=== PATIENT | female | born 1995 | race Caucasian/White ===

== ENCOUNTER 2021-10-03 21:16 | Emergency (ER) | payer OTHER, MEDICAID, SELFPAY ==
[2021-10-03 21:23] VITALS: BP 137/84; PULSE 98; RESP 18; TEMP 36.6; O2SAT 95; BMI 31.1
[2021-10-03 22:20] LABS: Basophils % 0.1 %; Eosinophils % 0.1 %; Hematocrit 45.3 % (37.0-47.0); Hemoglobin 14.8 g/dL (11.5-15.3); Lymphocytes # 1.5 10^3/uL (0.8-4.8); Lymphocytes % 9.9 %; Mean Corpuscular HGB Conc 32.7 g/dL (30.0-36.0); Mean Corpuscular Hemoglobin 28.4 pg (28.0-34.0); Mean Corpuscular Volume 86.8 fl (81-99); Mean Platelet Volume 10.7 fL (7.4-10.4); Monocytes % 7.1 %; Neutrophils # 12.05 10^3/uL (1.8-7.7); Neutrophils % 82.7 %; Nucleated Red Blood Cells % 0 %; Platelet Count 358 10^3/cmm (130-400); Red Blood Count 5.22 10^6/uL (4.1-5.3); Red Cell Distribution Width 12.9 % (12.1-15.1); White Blood Count 14.6 10^3/uL (4.0-10.0)
[2021-10-03 22:36] LABS: Alanine Aminotransferase 14 U/L (0-33); Albumin Level 4.4 g/dL (3.5-5.2); Alkaline Phosphatase 72 IU/L (35-105); Anion Gap 14.7 (5-19); Aspartate Amino Transferase 16 U/L (0-32); Blood Urea Nitrogen 13 mg/dL (6-20); Calcium 9.4 mg/dL (8.5-10.5); Carbon Dioxide 22 mmol/L (22-29); Chloride 100 mmol/L (98-107); Globulin 4.3 g/dL (1.3-4.6); Glomerular Filtration Rate 123.9 mL/min (90-130); Glucose 97 mg/dL (65-115); Osmolality Calculated 276 mOsm/kg (285-295); Potassium 3.7 mmol/L (3.5-5.1); Sodium 133 mmol/L (136-145); Total Bilirubin 0.4 mg/dL (0.15-1.2); Total Protein 8.7 g/dL (6.6-8.7)
[2021-10-03 22:42] LABS: HCG, Serum Qual Negative (Negative)
--- NOTE | 2021-10-03 22:49 | W.ED.GENADLT ---
Documented by User: DOTTIE Brock 10/03/21 23:43 HPI - General Adult General: Chief complaint: General Medical Stated complaint: HERRERA/Body aches/N/V/D Time Seen by Provider: 10/03/21 22:49 History of Present Illness: 25-year-old female comes in today with complaints of headache and nausea. Patient recently been put on some prednisone for her swelling around her thyroid in order for them to do a ultrasound of the neck. Patient reports that she had taken 2 tablets of prednisone this morning as prescribed. Since then she has had nausea and headache. Patient does report that the swelling around her thyroid has resolved after taking the medication though. Patient appears nontoxic. Patient appears moderate pain. Associated symptoms: Reports headache(s), malaise, nausea and vomiting; Deny chest pain, dyspnea or rash Review of Systems General: Reports: 10 or more systems reviewed and unremarkable except in HPI and below Const: Reports: malaise ENMT: Denies: throat pain Card: Denies: chest pain Resp: Denies: dyspnea GI: Reports: nausea and vomiting : Denies: flank pain Musc: Reports: extremity pain Skin/Breast: Denies: rash Neuro: Reports: headache(s) Physical Exam Const: COMMON NORMALS: alert HENMT: COMMON NORMALS: normocephalic HEAD & SCALP: normocephalic MOUTH: Normal oral and palatal mucosa present THROAT: posterior oropharynx normal Neck/C-Spine: COMMON NORMALS: full ROM Lymph: LYMPHATIC: no lymphadenopathy noted Resp: COMMON NORMALS: normal respiratory effort and clear to auscultation bilaterally AUSCULTATION: clear to auscultation bilaterally Cardio: COMMON NORMALS: regular rate and regular rhythm RATE: regular rate RHYTHM: regular rhythm GI: COMMON NORMALS: Soft to palpation PALPATION: Yes Soft to palpation Extremity: COMMON NORMALS: full ROM Neuro: SENSORIUM/ORIENTATION: Yes alert Psych: COMMON NORMALS: cooperative Skin: COMMON NORMALS: no rashes or lesions noted GENERAL SKIN EXAM: no rashes or lesions noted Course Vital Signs: Vital signs: Vital Signs Temperature 98 F 10/03/21 22:53 Pulse Rate 96 10/03/21 23:48 Respiratory Rate 14 10/03/21 23:48 Blood Pressure 122/68 10/03/21 23:48 Pulse Oximetry 99 10/03/21 23:48 [facility] - General Adult Medical Decision Making Patient comes in today with complaints of malaise, headache, and nausea. Patient recently was started on some prednisone 40 mg with her first dose today. Patient reports after taking medication she became ill to her stomach and then started getting a headache and basic body aches. On exam no focal neural deficits were noted. Patient moves all extremities well. Abdomen soft nontender. Skin is warm and dry. Vital signs are normal. Differential diagnosis includes but not limited to adverse drug effect, viral syndrome, migraine headache. CBC noted some elevation in white blood cell count which is probably secondary to steroid use. CMP was unremarkable except for some mild hyponatremia which may also be due to steroid use. Urinalysis was unremarkable. Patient was treated for her headache with Reglan and Toradol and diphenhydramine and 500 mL of fluid. Patient was instructed to hold the prednisone and discuss further with her primary care provider due to this being probably the culprit of her symptoms. Patient stated understanding and agreed to plan. Lab Data : 10/03/21 22:14 10/03/21 22:14 Laboratory Results WBC 14.6 10^3/uL (4.0-10.0) H 10/03/21 22:14 RBC 5.22 10^6/uL (4.1-5.3) 10/03/21 22:14 Hgb 14.8 g/dL (11.5-15.3) 10/03/21 22:14 Hct 45.3 % (37.0-47.0) 10/03/21 22:14 MCV 86.8 fl (81-99) 10/03/21 22:14 MCH 28.4 pg (28.0-34.0) 10/03/21 22:14 MCHC 32.7 g/dL (30.0-36.0) 10/03/21 22:14 RDW 12.9 % (12.1-15.1) 10/03/21 22:14 Plt Count 358 10^3/cmm (130-400) 10/03/21 22:14 MPV 10.7 fL (7.4-10.4) H 10/03/21 22:14 Neut % (Auto) 82.7 % 10/03/21 22:14 Lymph % (Auto) 9.9 % 10/03/21 22:14 [place] % (Auto) 7.1 % 10/03/21 22:14 Eos % (Auto) 0.1 % 10/03/21 22:14 Baso % (Auto) 0.1 % 10/03/21 22:14 Neut # (Auto) 12.05 10^3/uL (1.8-7.7) H 10/03/21 22:14 Lymph # (Auto) 1.5 10^3/uL (0.8-4.8) 10/03/21 22:14 [place] # (Auto) 1.0 10^3/uL (0.2-0.9) H 10/03/21 22:14 Eos # (Auto) 0.0 10^3/uL (0.0-0.8) 10/03/21 22:14 Baso # (Auto) 0.0 10^3/uL (0.0-0.1) 10/03/21 22:14 Nucleated RBC % (auto) 0 % 10/03/21 22:14 Nucleated RBCs # 0.0 /100WBC 10/03/21 22:14 Sodium 133 mmol/L (136-145) L 10/03/21 22:14 Potassium 3.7 mmol/L (3.5-5.1) 10/03/21 22:14 Chloride 100 mmol/L (98-107) 10/03/21 22:14 Carbon Dioxide 22 mmol/L (22-29) 10/03/21 22:14 Anion Gap 14.7 (5-19) 10/03/21 22:14 BUN 13 mg/dL (6-20) 10/03/21 22:14 Creatinine 0.6 mg/dL (0.5-0.9) 10/03/21 22:14 GFR Calculation 123.9 mL/min (90-130) 10/03/21 22:14 Glucose 97 mg/dL (65-115) 10/03/21 22:14 Calculated Osmolality 276 mOsm/kg (285-295) L 10/03/21 22:14 Calcium 9.4 mg/dL (8.5-10.5) 10/03/21 22:14 Total Bilirubin 0.4 mg/dL (0.15-1.2) 10/03/21 22:14 AST 16 U/L (0-32) 10/03/21 22:14 ALT 14 U/L (0-33) 10/03/21 22:14 Alkaline Phosphatase 72 IU/L (35-105) 10/03/21 22:14 Total Protein 8.7 g/dL (6.6-8.7) 10/03/21 22:14 Albumin 4.4 g/dL (3.5-5.2) 10/03/21 22:14 Globulin 4.3 g/dL (1.3-4.6) 10/03/21 22:14 HCG, Qual Negative (Negative) 10/03/21 22:14 Urine Color Yellow (Yellow) 10/03/21 22:23 Urine Appearance Clear (CLEAR) 10/03/21 22:23 Urine pH 5 (5-7) 10/03/21 22:23 Ur Specific [place] 1.025 (1.005-1.030) 10/03/21 22:23 Urine Protein Neg (Negative) 10/03/21 22:23 Urine Glucose (UA) Norm (Normal) 10/03/21 22:23 Urine Ketones 1+ (Negative) H 10/03/21 22:23 Urine Blood Neg (Negative) 10/03/21 22:23 Urine Nitrate Negative (Negative) 10/03/21 22:23 Urine Bilirubin Neg (Negative) 10/03/21 22:23 Urine Urobilinogen Norm mg/dL (Negative) 10/03/21 22:23 Ur Leukocyte Esterase Negative (Negative) 10/03/21 22:23 Discharge Plan Discharge Patient Disposition: Home Clinical Impression: Adverse drug effect Qualifiers: Encounter type: initial encounter Qualified Code(s): T50.905A - Adverse effect of unspecified drugs, medicaments and biological substances, initial encounter Headache Qualifiers: Headache type: unspecified Headache chronicity pattern: acute headache Intractability: not intractable Qualified Code(s): R51.9 - Headache, unspecified Condition: Stable Prescriptions: New ondansetron 4 mg tablet,disintegrating 4 mg PO Q8H PRN (Reason: nausea and vomiting) Qty: 6 0RF Discharge Orders: Discharge ED (Routine); Ordered 10/03/21 Ordered By: Keo Finch Discharge Diet: Usual diet Discharge Activity: Increase activity as tolerated Patient Instructions: General Headache (ED) Activity Restrictions/Additional Instructions: Drink plenty of water. Take ondansetron as needed for nausea. Follow-up with primary care for further instructions regarding prednisone. Hold prednisone until discussion with primary care. Return to the ER for new concerns or worsening symptoms. Coding Level of Care Code ED Transitional Studies Instructor for Chg Fwd Exam Comprehensive Documented by User: Luis Manuel Larsen DO 10/04/21 01:01 HPI - General Adult General: Chief complaint: General Medical Stated complaint: HERRERA/Body aches/N/V/D Time Seen by Provider: 10/03/21 22:49 Course Vital Signs: Vital signs: Vital Signs Temperature 98 F 10/03/21 22:53 Pulse Rate 96 10/03/21 23:48 Respiratory Rate 14 10/03/21 23:48 Blood Pressure 122/68 10/03/21 23:48 Pulse Oximetry 99 10/03/21 23:48 MDM - General Adult Medical Decision Making Patient comes in today with complaints of malaise, headache, and nausea. Patient recently was started on some prednisone 40 mg with her first dose today. Patient reports after taking medication she became ill to her stomach and then started getting a headache and basic body aches. On exam no focal neural deficits were noted. Patient moves all extremities well. Abdomen soft nontender. Skin is warm and dry. Vital signs are normal. Differential diagnosis includes but not limited to adverse drug effect, viral syndrome, migraine headache. CBC noted some elevation in white blood cell count which is probably secondary to steroid use. CMP was unremarkable except for some mild hyponatremia which may also be due to steroid use. Urinalysis was unremarkable. Patient was treated for her headache with Reglan and Toradol and diphenhydramine and 500 mL of fluid. Patient was instructed to hold the prednisone and discuss further with her primary care provider due to this being probably the culprit of her symptoms. Patient stated understanding and agreed to plan. This patient was originally seen by DOTTIE Howe.? I agree with his history, evaluation, and treatment. Lab Data : 10/03/21 22:14 10/03/21 22:14 Laboratory Results WBC 14.6 10^3/uL (4.0-10.0) H 10/03/21 22:14 RBC 5.22 10^6/uL (4.1-5.3) 10/03/21 22:14 Hgb 14.8 g/dL (11.5-15.3) 10/03/21 22:14 Hct 45.3 % (37.0-47.0) 10/03/21 22:14 MCV 86.8 fl (81-99) 10/03/21 22:14 MCH 28.4 pg (28.0-34.0) 10/03/21 22:14 MCHC 32.7 g/dL (30.0-36.0) 10/03/21 22:14 RDW 12.9 % (12.1-15.1) 10/03/21 22:14 Plt Count 358 10^3/cmm (130-400) 10/03/21 22:14 MPV 10.7 fL (7.4-10.4) H 10/03/21 22:14 Neut % (Auto) 82.7 % 10/03/21 22:14 Lymph % (Auto) 9.9 % 10/03/21 22:14 [place] % (Auto) 7.1 % 10/03/21 22:14 Eos % (Auto) 0.1 % 10/03/21 22:14 Baso % (Auto) 0.1 % 10/03/21 22:14 Neut # (Auto) 12.05 10^3/uL (1.8-7.7) H 10/03/21 22:14 Lymph # (Auto) 1.5 10^3/uL (0.8-4.8) 10/03/21 22:14 [place] # (Auto) 1.0 10^3/uL (0.2-0.9) H 10/03/21 22:14 Eos # (Auto) 0.0 10^3/uL (0.0-0.8) 10/03/21 22:14 Baso # (Auto) 0.0 10^3/uL (0.0-0.1) 10/03/21 22:14 Nucleated RBC % (auto) 0 % 10/03/21 22:14 Nucleated RBCs # 0.0 /100WBC 10/03/21 22:14 Sodium 133 mmol/L (136-145) L 10/03/21 22:14 Potassium 3.7 mmol/L (3.5-5.1) 10/03/21 22:14 Chloride 100 mmol/L (98-107) 10/03/21 22:14 Carbon Dioxide 22 mmol/L (22-29) 10/03/21 22:14 Anion Gap 14.7 (5-19) 10/03/21 22:14 BUN 13 mg/dL (6-20) 10/03/21 22:14 Creatinine 0.6 mg/dL (0.5-0.9) 10/03/21 22:14 GFR Calculation 123.9 mL/min (90-130) 10/03/21 22:14 Glucose 97 mg/dL (65-115) 10/03/21 22:14 Calculated Osmolality 276 mOsm/kg (285-295) L 10/03/21 22:14 Calcium 9.4 mg/dL (8.5-10.5) 10/03/21 22:14 Total Bilirubin 0.4 mg/dL (0.15-1.2) 10/03/21 22:14 AST 16 U/L (0-32) 10/03/21 22:14 ALT 14 U/L (0-33) 10/03/21 22:14 Alkaline Phosphatase 72 IU/L (35-105) 10/03/21 22:14 Total Protein 8.7 g/dL (6.6-8.7) 10/03/21 22:14 Albumin 4.4 g/dL (3.5-5.2) 10/03/21 22:14 Globulin 4.3 g/dL (1.3-4.6) 10/03/21 22:14 HCG, Qual Negative (Negative) 10/03/21 22:14 Urine Color Yellow (Yellow) 10/03/21 22:23 Urine Appearance Clear (CLEAR) 10/03/21 22:23 Urine pH 5 (5-7) 10/03/21 22:23 Ur Specific [place] 1.025 (1.005-1.030) 10/03/21 22:23 Urine Protein Neg (Negative) 10/03/21 22:23 Urine Glucose (UA) Norm (Normal) 10/03/21 22:23 Urine Ketones 1+ (Negative) H 10/03/21 22:23 Urine Blood Neg (Negative) 10/03/21 22:23 Urine Nitrate Negative (Negative) 10/03/21 22:23 Urine Bilirubin Neg (Negative) 10/03/21 22:23 Urine Urobilinogen Norm mg/dL (Negative) 10/03/21 22:23 Ur Leukocyte Esterase Negative (Negative) 10/03/21 22:23 Discharge Plan Discharge Patient Disposition: Home Clinical Impression: Adverse drug effect Qualifiers: Encounter type: initial encounter Qualified Code(s): T50.905A - Adverse effect of unspecified drugs, medicaments and biological substances, initial encounter Headache Qualifiers: Headache type: unspecified Headache chronicity pattern: acute headache Intractability: not intractable Qualified Code(s): R51.9 - Headache, unspecified Condition: Stable Prescriptions: New ondansetron 4 mg tablet,disintegrating 4 mg PO Q8H PRN (Reason: nausea and vomiting) Qty: 6 0RF Discharge Orders: Discharge ED (Routine); Ordered 10/03/21 Ordered By: Keo Finch Discharge Diet: Usual diet Discharge Activity: Increase activity as tolerated Patient Instructions: General Headache (ED) Activity Restrictions/Additional Instructions: Drink plenty of water. Take ondansetron as needed for nausea. Follow-up with primary care for further instructions regarding prednisone. Hold prednisone until discussion with primary care. Return to the ER for new concerns or worsening symptoms. Coding Level of Care Code ED Transitional Studies Instructor for Denys Antonio Exam Comprehensive
[2021-10-03 22:53] VITALS: BP 108/74; PULSE 89; RESP 14; TEMP 36.6; O2SAT 96
[2021-10-03 23:02] LABS: Add Urine Microscopic? NO; Charge for UA Resulting for Rev
[2021-10-03 23:05] LABS: Bilirubin Urine Neg (Negative); Blood Urine Neg (Negative); Glucose Urine UA Norm (Normal); Ketones Urine 1+ (Negative); Leukocyte Esterase Urine Negative (Negative); Nitrate Urine Negative (Negative); Protein Urine Neg (Negative); Specific Gravity, Urine 1.025 (1.005-1.030); Urine Appearance Clear (CLEAR); Urine Color Yellow (Yellow); Urobilinogen Urine Norm (Negative); pH Urine 5 (5-7)
[2021-10-03] MEDS: sodium chloride 0.9% 500 ML 999 ML IV (23:12)
[2021-10-03] MEDS: metoclopramide 5 mg/mL SDV 2 mL 10 MG IVP (23:14)
[2021-10-03] MEDS: diphenhydrAMINE 50 mg/mL SDV 1mL 12.5 MG IVP (23:15)
[2021-10-03] MEDS: ketorolac 30 mg/mL INJ 15 MG IVP (23:15)
[2021-10-03 23:20] VITALS: BP 131/86; PULSE 94; RESP 16; O2SAT 95
[2021-10-03 23:48] VITALS: BP 122/68; PULSE 96; RESP 14; O2SAT 99
== END 2021-10-03 23:53 | disposition home or self-care (01) ==
PROVIDERS: Emergency Medicine; Emergency Provider Nurse Practitioner Family
DX: R51.9 Headache, unspecified (principal); R11.0 Nausea; R53.81 Other malaise; T38.0X5A Adverse effect of glucocorticoids and synthetic analogues, initial encounter
CPT/HCPCS: 80053; 81003; 84703; 85025; 96361; 96374; 96375; 99284; J1200; J1885; J2765; J7040

== ENCOUNTER 2021-11-03 08:24 | Outpatient (CLI) | payer OTHER, MEDICAID, SELFPAY ==
--- NOTE | 2021-11-03 08:34 | US_ITS ---
WS: [id number] ULTRASOUND-GUIDED LEFT THYROID NODULE FNA HISTORY: Solid nodule LEFT thyroid. Procedure, risks, and complications were explained to the patient. Consent has been obtained. The skin is cleansed with ChloraPrep and anesthetized with 1% buffered lidocaine. FNA performed with 25 gauge needles. chief ultrasound technologist is present to fix slides. There is a very small amount o f adjacent bleeding at the site of the nodule which did not increase in size over 20 minutes post pro cedure. Patient is instructed to return to the hospital with any concerns. US/US biopsy/FNA thyroid [id number] IMPRESSION: Uncomplicated FNA of a LEFT thyroid nodule. Final pathology results pending.
== END 2021-11-03 08:25 | disposition home or self-care (01) ==
LOC: RAD 08:27
PROVIDERS: Visit Provider Family Medicine
DX: E04.1 Nontoxic single thyroid nodule (principal)
CPT/HCPCS: 10005; 88173; 88305